=== PATIENT | male | born 1995 | race Caucasian/White ===

== ENCOUNTER 2017-10-03 11:36 | Inpatient (IN) | payer OTHER ==
[~2017-10-03] VITALS: Ht 180.3 cm; Wt 81.6 kg
[2017-10-03 12:23] LABS: ABSOLUTE BASOPHIL COUNT 0 /CUMM (0.0-0.2); ABSOLUTE EOSINOPHIL COUNT 0 /CUMM (0.0-0.7); ABSOLUTE GRANULOCYTE CT 8.7 /CUMM (1.4-6.5); ABSOLUTE LYMPH COUNT 1.4 /CUMM (1.2-3.4); ABSOLUTE MONOCYTE COUNT 0.6 /CUMM (0.10-0.60); BASOPHIL % 0.2 % (0.0-2.0); EOSINOPHIL % 0.1 % (0-5); GRANULOCYTE % 81.5 % (42.2-75.2); MEAN CORPUSCULAR HGB 28.9 PG (27.0-31.0); MEAN CORPUSCULAR HGB CONC 34.3 G/DL (33.0-37.0); MEAN CORPUSCULAR VOLUME 84.2 FL (80.0-94.0); MEAN PLATELET VOLUME 10.5 FL (7.4-10.4); PLATELET COUNT 150 /CUMM (130-400); RBC DISTRIBUTION WIDTH 13.6 % (11.5-14.5); RED BLOOD CELL CT 5.81 /CUMM (4.70-6.10); WHITE BLOOD CELL COUNT 10.7 /CUMM (4.8-10.8)
--- NOTE | 2017-10-03 14:07 | ED GENERAL ADULT ---
History of Present Illness General Chief Complaint: General Adult Stated Complaint: SENT BY [employer] FOR NUMBNESS ON RT SIDE Source: patient Exam Limitations: no limitations Vital Signs & Intake/Output Vital Signs & Intake/Output Vital Signs Date Time Temp Pulse Resp B/P B/P Pulse O2 O2 Flow FiO2 Mean Ox Delivery Rate 10/03 1412 98.7 86 18 133/60 100 10/03 1150 98.5 92 16 127/79 98 Room Air Allergies Coded Allergies: No Known Allergies (10/03/17) Reconcile Medications No Known Home Medications Triage Note: PT TO ED "I GUESS I OVERDOSED LAST NIGHT AT 1730 MY PARENTS FOUND ME, I THINK IT WAS HEROIN" PT DID NOT SEEK MEDICAL CARE LAST PM. ARRIVED TO [facility] THIS AM AND WAS INSTRUCTED TO COME TO ED TO HAVE R LEG MEDICALLY CLEARED AND R HAND MEDICALLY CLEARED. 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 PT EXPRESSING CONCERN ABOUT HOW HE WAS LAYING ON R LEG AND R HAND BEFORE BEING FOUND LAST PM "MAYBE IT CUT OFF MY BLOOD FLOW" Triage Nurses Notes Reviewed? yes Onset: Abrupt Duration: hour(s): (5) Timing: no prior history Injury Environment: home Severity: moderate Severity Numbers: 6 Modifying Factors: Worsens With: immobilization, movement. HPI: Patient is a 22-year-old male with history of IV drug abuse, specifically heroin presenting to the emergency department with chief complaint of right arm and right leg numbness and tingling with been going on since yesterday evening. Patient reports that he injected heroin Mustoe passed out because he woke up laying on his right side. He will go up to his family members trying to wake him up. Patient was responsive at that time so they did not seek medical attention. Patient reports that since then he said numbness and tingling to the right arm and leg. Symptoms were prominent in the right foot. he reports as if he cannot completely feel his right foot touching the ground. Has been using a cane that he has at home to walk. He does report that he hit his head and he only knows this because he is an abrasion on the face. Denies any current headaches. No visual changes. Denies using any other drugs besides heroin. No alcohol use recently. Denies any increased depression or anxiety. No history of similar symptoms in the past. Denies any urinary frequency or urgency or dysuria. Family does report that patient complained of darker urine this morning. Otherwise eating and drinking well. Past History Travel History Traveled to [place] past 21 day No Medical History Any Pertinent Medical History? see below for history Neurological: NONE EENT: NONE Cardiovascular: NONE Respiratory: NONE Gastrointestinal: NONE Hepatic: NONE Renal: NONE Musculoskeletal: NONE Psychiatric: depression, IV drug abuse, opioid dependence Endocrine: NONE Surgical History Surgical History: non-contributory Psychosocial History What is your primary language Latvian Tobacco Use: Current Daily Use Daily Tobacco Use Amount/Type: => 5 Cigarettes daily ETOH Use: occasional use Family History Hx Contributory? No Review of Systems Review of Systems Constitutional: Reports: no symptoms. Comments Review of systems: See HPI, All other systems negative. Constitutional, no chills fever or weight loss HEENT: No visual changes no sore throat no congestion Cardiovascular: No chest pain ,palpitation , orthopnea or ankle swelling Skin, no jaundice no rashes Respiratory: No dyspnea cough sputum or hemoptysis GI: No nausea no vomiting : No dysuria No hematuria Muscle skeletal: no back pain, no neck pain, Neurologic: no confusion Psych: History of depression, denies increased depression or increased anxiety Heme/endocrine: No bruising no bleeding no polyuria or polydipsia Immunology: No splenectomy or history of AIDS Physical Exam Physical Exam General Appearance: well developed/nourished, no apparent distress, alert, awake , comfortable Comments: Well-developed well-nourished person in no acute distress HEENT: extraocular motion intact, no nystagmus. Pupils equally round and reactive to light and accommodation. Nose is atraumatic. External auditory canal and Tympanic membranes clear. Pharynx normal. No swelling or edema. Nontender to palpation over entire scalp and facial bones. No hematomas noted over the scalp. Superficial abrasion noted to the right maxillary area, minimal tenderness over this area. NEck: Supple, no lymphadenopathy, normal range of motion without pain or tenderness, no C-spine tenderness. Back: Nontender, no CVA tenderness. Full range of motion Cardiovascular: Regular rate and rhythms no murmurs rubs or gallops, normal JVP Respiratory: Chest nontender. No respiratory distress.breath sounds clear to auscultation bilaterally Abdomen: Soft, nontender nondistended, no appreciable organomegaly. Normal bowel sounds. No ascites, NOT TENDER TO PALPATION. Extremity: No edema, no calf tenderness to palpation, normal and equal pulses. Muscular strength is 5 out of 5 in upper and lower extremities located on the stretcher. Business [employer] Specialist strength is equal and symmetric bilaterally. Neuro: Alert oriented x3, cranial nerves II through XII grossly intact. Dulled sensation noted over the dorsum of the right foot with sharp and dull sensation testing, but is not consistent with various. Patellar reflexes are intact, 2+ bilaterally. Babinski reflexes intact in lower extremities bilaterally. Radial reflexes are intact bilaterally. Skin: No appreciable rash on exposed skin, skin is warm and dry. Psych: Mood and affect is normal, memory and judgment is normal. Core Measures ACS in differential dx? No CVA/TIA Diagnosis: No Sepsis Present: No Sepsis Focused Exam Completed? No Progress Differential Diagnoses I considered the following diagnoses in my evaluation of the patient: Neuropraxia, spinal fracture, spinal abscess, rhabdomyolysis, dehydration, electrolyte abnormality, muscle strain, intracranial hemorrhage, overdose, polysubstance abuse Plan of Care: Orders Procedure Date/time Status Regular Diet 10/04 B Active Regular Diet 10/03 D Complete Patient Data 10/03 1630 Active Misc Message 10/03 1624 Active ED Holding Orders 10/03 1624 Active Admit to inpatient 10/03 1624 Active Vital Signs 10/03 1624 Active Code Status 10/03 1624 Active EKG 10/03 1546 Active MISTAKE 10/03 1413 Active Intake & Output 10/03 1339 Active Add-on Test (ER Only) 10/03 1325 Active CREATINE PHOSPHOKINASE 10/03 1210 Complete URINE DRUG SCREEN FOR ER ONLY 10/03 1150 Complete URINALYSIS 10/03 1150 Complete MAGNESIUM 10/03 1150 Complete ETHANOL 10/03 1150 Complete COMPREHENSIVE METABOLIC PANEL 10/03 1150 Complete CBC WITHOUT DIFFERENTIAL 10/03 1150 Complete Laboratory Tests 10/03/17 1217: Urine Opiates Screen 1668.00, Methadone Screen < 40, Barbiturate Screen < 60, Ur Phencyclidine Scrn < 6.00, Amphetamines Screen < 100, U Benzodiazepines Scrn < 85, Urine Cocaine Screen < 50, Urine Cannabis Screen 5.80, Urinalysis LIGHT H, Urine Color YEL, Urine Clarity HAZY H, Urine pH 6.0, Ur Specific [place] 1.020, Urine Protein NEG, Urine Ketones 40 H, Urine Nitrite NEG, Urine Bilirubin NEG, Urine Urobilinogen 0.2, Ur Leukocyte Esterase TRACE H, Ur Microscopic SEDIMENT EXAMINED, Urine RBC 1-3, Urine WBC 3-5 H, Ur Epithelial Cells MOD H, Urine Bacteria FEW H, Granular Casts RARE H, Urine Mucus MOD H, Urine Hemoglobin MOD H, Urine Glucose NEG 10/03/17 1210: Anion Gap 12, Estimated GFR > 60, BUN/Creatinine Ratio 21.4, Glucose 115 H, Calcium 9.4, Magnesium 2.1, Total Bilirubin 0.9, AST 1291 H, ALT 428 H, Alkaline Phosphatase 57, Creatine Kinase > 00613 H, Total Protein 7.3, Albumin 4.4, Globulin 2.9, Albumin/Globulin Ratio 1.5, CBC w Diff NO MAN DIFF REQ, RBC 5.81, MCV 84.2, MCH 28.9, MCHC 34.3, RDW 13.6, MPV 10.5 H, Gran % 81.5 H, Lymphocytes % 12.8 L, Monocytes % 5.4, Eosinophils % 0.1, Basophils % 0.2, Absolute Granulocytes 8.7 H, Absolute Lymphocytes 1.4, Absolute Monocytes 0.6, Absolute Eosinophils 0, Absolute Basophils 0, Serum Alcohol < 10.0 Diagnostic Imaging: Viewed by Me: CT Scan. Discussed w/RAD: CT Scan. Radiology Impression: PATIENT: THANH FERRARA PRESENT AGE: 22 PATIENT ACCOUNT NO: [id number] : 95 LOCATION: [facility] ORDERING PHYSICIAN: Alicia DAVIDSON SERVICE DATE: 10/03/17 EXAM TYPE: CAT - CT HEAD WO IV CONTRAST EXAMINATION: CT HEAD WITHOUT CONTRAST CLINICAL INFORMATION: Fall with head strike. Overdose. COMPARISON: None. TECHNIQUE: Contiguous axial imaging was performed from the skull base to vertex without intravenous contrast. DLP: 632 mGy-cm. FINDINGS: There is no evidence of acute intracranial hemorrhage or territorial infarction. No abnormal mass effect or midline shift is seen. Culver to white matter differentiation is well preserved. No extra-axial fluid collections are identified. No hydrocephalus. No significant volume loss. There is no abnormal attenuation within the brain parenchyma. The osseous structures and soft tissues are normal. The mastoid air cells and visualized portions of the paranasal sinuses are well aerated. IMPRESSION: No acute intracranial pathology. DICTATED BY: Ricky Pascual MD DATE/TIME DICTATED:10/03/171520 EDUCATION GENERAL MANAGER:RAKESH DATE/TIME TRANSCRIBED:10/03/171520 CONFIDENTIAL, DO NOT COPY WITHOUT APPROPRIATE AUTHORIZATION. <Electronically signed in Other Vendor System> SIGNED BY: Ricky Pascual MD 10/03/17 1527, PATIENT: THANH FERRARA PRESENT AGE: 22 PATIENT ACCOUNT NO: [id number] : 95 LOCATION: [facility] ORDERING PHYSICIAN: Alicia DAVIDSON SERVICE DATE: 10/03/17 EXAM TYPE: CAT - CT CERV SPINE W IV CONTRAST; CT LUMB SPINE W IV CONTRAST; CT THOR SPINE W IV CONTRAST EXAMINATION: CT CERVICAL SPINE WITH CONTRAST CT THORACIC SPINE WITH CONTRAST CT LUMBAR SPINE WITH CONTRAST CLINICAL INFORMATION: Fall, overdose. Drug user. Rule out fracture or abscess. COMPARISON: None TECHNIQUE: Multidetector volumetric imaging of the cervical, thoracic, and lumbar spine was performed after administration of 95 mL of Optiray 320 IV contrast. Coronal and sagittal reformatted images were obtained and reviewed. DLP: 1135 mGy-cm FINDINGS: There is no evidence of acute vertebral body fracture or malalignment. Vertebral body heights are maintained. Appearance of a limbus vertebrae at C5. Intervertebral disc spaces are maintained. The posterior elements are appropriately aligned. The sacroiliac joints are intact. The visualized ribs are intact. There is no abnormal enhancement within the spinal canal to suggest abscess formation. The paraspinal soft tissues are unremarkable. The visualized lungs are clear. Mild fullness of both renal collecting systems. No lymphadenopathy seen. IMPRESSION: 1. No acute fracture or malalignment of the spine. 2. No abnormal enhancement within the spinal canal or adjacent soft tissues to suggest abscess formation. DICTATED BY: Ricky Pascual MD DATE/ TIME DICTATED:10/03/171522 EDUCATION GENERAL MANAGER:RAKESH DATE/TIME TRANSCRIBED: 10/03/171522 CONFIDENTIAL, DO NOT COPY WITHOUT APPROPRIATE AUTHORIZATION. < Electronically signed in Other Vendor System> SIGNED BY: Ricky Pascual MD 10/03/17 1533 Initial ED EKG: NSR Departure Departure Time of Disposition: 1630 Disposition: STILL A PATIENT Condition: Stable Clinical Impression Primary Impression: Rhabdomyolysis Qualifiers: Rhabdomyolysis type: traumatic Encounter type: initial encounter Qualified Code: T79.6XXA - Traumatic ischemia of muscle, initial encounter Referrals: Patient Has No Primary Care Dr (PCP/Family) Departure Forms: Customer Survey General Discharge Information Prescriptions: Current Visit Scripts No Known Home Medications Admission Note Spoke With: Jose Corbin MD Documentation of Exam: Documentation of any treatments & extenuating circumstances including Concerns Regarding Discharge (functional status, medication knowledge or non-compliance, living conditions, etc.) that warrant an admission rather than observation: Patient requiring extensive IV hydration for rhabdomyolysis, repeat CK, repeat LFTs, may require neurological consultation secondary to numbness and tingling, may require anti-inflammatories or steroids for questionable neuropraxia. Discharge at this time is medically harmful. Patient may require physical therapy evaluation pending symptoms improvement with treatment. Critical Care Note Critical Care Note Critical Care Time: non-applicable
--- NOTE | 2017-10-03 15:27 | CT SCAN REPORT ---
EXAMINATION: CT HEAD WITHOUT CONTRAST CLINICAL INFORMATION: Fall with head strike. Overdose. COMPARISON: None. TECHNIQUE: Contiguous axial imaging was performed from the skull base to vertex without intravenous contrast. DLP: 632 mGy-cm. FINDINGS: There is no evidence of acute intracranial hemorrhage or territorial infarction. No abnormal mass effect or midline shift is seen. Culver to white matter differentiation is well preserved. No extra-axial fluid collections are identified. No hydrocephalus. No significant volume loss. There is no abnormal attenuation within the brain parenchyma. The osseous structures and soft tissues are normal. The mastoid air cells and visualized portions of the paranasal sinuses are well aerated. IMPRESSION: No acute intracranial pathology.
--- NOTE | 2017-10-03 15:33 | CT SCAN REPORT ---
EXAMINATION: CT CERVICAL SPINE WITH CONTRAST CT THORACIC SPINE WITH CONTRAST CT LUMBAR SPINE WITH CONTRAST CLINICAL INFORMATION: Fall, overdose. Drug user. Rule out fracture or abscess. COMPARISON: None TECHNIQUE: Multidetector volumetric imaging of the cervical, thoracic, and lumbar spine was performed after administration of 95 mL of Optiray 320 IV contrast. Coronal and sagittal reformatted images were obtained and reviewed. DLP: 1135 mGy-cm FINDINGS: There is no evidence of acute vertebral body fracture or malalignment. Vertebral body heights are maintained. Appearance of a limbus vertebrae at C5. Intervertebral disc spaces are maintained. The posterior elements are appropriately aligned. The sacroiliac joints are intact. The visualized ribs are intact. There is no abnormal enhancement within the spinal canal to suggest abscess formation. The paraspinal soft tissues are unremarkable. The visualized lungs are clear. Mild fullness of both renal collecting systems. No lymphadenopathy seen. IMPRESSION: 1. No acute fracture or malalignment of the spine. 2. No abnormal enhancement within the spinal canal or adjacent soft tissues to suggest abscess formation.
--- NOTE | 2017-10-03 17:09 | History & Physical ---
Izzy Bradshaw MDapna 10/03/17 8938: General Information and [facility] MD Statement: I have seen and personally examined THANH FERRARA and documented this H&P. The patient is a 22 year old M who presented with a patient stated chief complaint of [right hand and leg numbness and tingling sensation]. Source of Information: patient Exam Limitations: no limitations History of Present Illness: 22-year-old gentleman with no past medical history came to [facility] from [facility] complains of right hand and right leg numbness and tingling sensation since last night. Patient was in his usual state of health, patient was trying to inject IV heroine into his left arm and he suddenly collapsed. Patient was lying in the floor for 5-6 hours with face planted. Later this morning woke him up and he managed to walk to his bed and slept through the night. He woke up groggy and felt numbness and tingling sensation in his right hand and right leg. Patient went to [facility] for rehabilitation and they referred him here to [facility]. Patient managed to walk with a cane and limp on his right side. Patient denies incontinence of bowel and bladder, witnessed seizure, confused mentation, nausea, vomiting, abdominal pain, chest pain, palpitation, abdominal pain. Patient denies similar history in the past. Patient was admitted for depression and suicidal ideation many years ago Allergies/Medications Allergies: Coded Allergies: No Known Allergies (10/03/17) Home Med list No Known Home Medications Compliance With Home Meds: UNKNOWN Past History Travel History Traveled to [place] past 21 day No Medical History Neurological: NONE EENT: NONE Cardiovascular: NONE Respiratory: NONE Gastrointestinal: NONE Hepatic: NONE Renal: NONE Musculoskeletal: NONE Psychiatric: depression, IV drug abuse, opioid dependence Endocrine: NONE Surgical History Surgical History: non-contributory Past Family/Social History Family History Relations & Conditions if any Relation not specified for: *No pertinent family history Psychosocial History Where do you live? Home Who Do You Live With? parent Services at Home: None Primary Language: Sinhala ETOH Use: occasional use Review of Systems Review of Systems Constitutional: Reports: no symptoms. Cardiovascular: Reports: no symptoms. Respiratory: Reports: no symptoms. Genitourinary: Reports: no symptoms. Musculoskeletal: Reports: no symptoms. Exam & Diagnostic Data Last 24 Hrs of Vital Signs/I&O Vital Signs Date Time Temp Pulse Resp B/P B/P Pulse O2 O2 Flow FiO2 Mean Ox Delivery Rate 10/03 2201 98.4 68 20 128/60 98 Room Air 10/03 2019 69 110/74 10/03 2000 64 110/78 10/03 1842 98.7 69 18 118/72 10/03 1830 98.7 69 18 118/72 99 Room Air 10/03 1754 97.8 78 18 130/70 98 Room Air 10/03 1412 98.7 86 18 133/60 100 10/03 1150 98.5 92 16 127/79 98 Room Air Intake & Output 10/04 0800 10/04 0000 10/03 1600 Intake Total 2120 3720 1000 Output Total Balance 2120 3720 1000 Intake, IV 1400 3000 1000 Intake, Oral 720 720 Number 0 0 Bowel Movements Patient 180 lb 180 lb Weight Weight Reported by Patient Reported by Patient Measurement Method Physical Exam General Appearance Alert, Oriented X3, Cooperative, No Acute Distress, GAIT- LIMPIMG GAIT RT SIDE Cardiovascular Regular Rate, Normal S1, Normal S2, No Murmurs Lungs Clear to Auscultation Abdomen Soft, No Tenderness, No Hepatospenomegaly Neurological Normal Speech, Normal Tone, Cranial Nerves 3-12 NL, DECREASED SENSATION RIGHT HAND AND RIGHT LEG BELOW THE LEVEL OF KNEE. Extremities No Edema, Normal Pulses Last 24 Hrs of Labs/Roby: Laboratory Tests 10/03/17 1750: PT 12.8 H, INR 1.17 10/03/17 1217: Urine Opiates Screen 1668.00, Methadone Screen < 40, Barbiturate Screen < 60, Ur Phencyclidine Scrn < 6.00, Amphetamines Screen < 100, U Benzodiazepines Scrn < 85, Urine Cocaine Screen < 50, Urine Cannabis Screen 5.80, Urinalysis LIGHT H, Urine Color YEL, Urine Clarity HAZY H, Urine pH 6.0, Ur Specific [place] 1.020, Urine Protein NEG, Urine Ketones 40 H, Urine Nitrite NEG, Urine Bilirubin NEG, Urine Urobilinogen 0.2, Ur Leukocyte Esterase TRACE H, Ur Microscopic SEDIMENT EXAMINED, Urine RBC 1-3, Urine WBC 3-5 H, Ur Epithelial Cells MOD H, Urine Bacteria FEW H, Granular Casts RARE H, Urine Mucus MOD H, Urine Hemoglobin MOD H, Urine Glucose NEG 10/03/17 1210: Anion Gap 12, Estimated GFR > 60, BUN/Creatinine Ratio 21.4, Glucose 115 H, Calcium 9.4, Magnesium 2.1, Total Bilirubin 0.9, AST 1291 H, ALT 428 H, Alkaline Phosphatase 57, Creatine Kinase > 15267 H, Total Protein 7.3, Albumin 4.4, Globulin 2.9, Albumin/Globulin Ratio 1.5, CBC w Diff NO MAN DIFF REQ, RBC 5.81, MCV 84.2, MCH 28.9, MCHC 34.3, RDW 13.6, MPV 10.5 H, Gran % 81.5 H, Lymphocytes % 12.8 L, Monocytes % 5.4, Eosinophils % 0.1, Basophils % 0.2, Absolute Granulocytes 8.7 H, Absolute Lymphocytes 1.4, Absolute Monocytes 0.6, Absolute Eosinophils 0, Absolute Basophils 0, Hepatitis A IgM Ab Pending, Hep Bs Antigen Pending, Hep B Core IgM Ab Conf Pending, Hepatitis C Antibody Pending, Acetaminophen < 10.0 L, Serum Alcohol < 10.0 Diagnostic Data EKG Results EKG-sinus rhythm-heart rate 70 normal axes Other Results Lower extremity CAT scan There is fluid along the deep fascial planes adjacent to the right gluteus musculature and quadriceps musculature. This is nonspecific. Lack of IV contrast limits evaluation for a focal fluid collection, but no gross collection is seen. The fluid could be associated with hematoma, although the left hip is not included on the [id number] of this study and assessment for the symmetry of the musculature cannot be performed. Cervical spine CAT scan with IV contrast 1. No acute fracture or malalignment of the spine. 2. No abnormal enhancement within the spinal canal or adjacent soft tissues to suggest abscess formation. Assessment/Plan Assessment: 22-year-old gentleman with no past medical history came to [facility] [place] complains of right hand and right leg numbness and tingling sensation since last night. Admission vitals Temperature 98.5, pulse rate 92, respiratory rate 16, blood pressure 127/79, saturating 98 at room air Admission labs WBC 10.7, hemoglobin 16.8, platelets 150, sodium 136, potassium 3.8, BUNs 15, creatinine 0.7, glucose 115, calcium 9.4, medications 2.1, AST is 19, ALD 428, alkaline phosphatase 57, creatinine kinase 32,[address] cervical spine with IV contrast 1. No acute fracture or malalignment of the spine. 2. No abnormal enhancement within the spinal canal or adjacent soft tissues to suggest abscess formation. Head CT No acute intracranial pathology. Assessment and plan 1. Fall-rhabdomyolysis. 2. Numbness right arm and leg. 3. Opioid use disorder. * Fall-CAT scan negative for any intracranial bleed. Patient alert, oriented 3. MRI was not done. Rhabdomyolysis secondary due to prolonged immobilization. We will start him on IV fluids and repeat CK in the morning. Patient complains of right hip and right thigh tightness. We will take lower extremity CAT scan to rule out any hematoma. * Numbness right arm and leg-strength 5 x 5. Sensation decreased on the right hand and right leg. This patient's continues having numbness and tingling sensation we will involve neurology. * Opioid use disorder-patient is a chronic IV drug abuser and smokes pot, has insight of the problem. Watch for opiate withdrawal. Patient also uses alcohol on and off. Watch for any alcohol withdrawal. Code-full code Diet-regular diet As Ranked By This Provider Problem List: 1. Rhabdomyolysis Qualifiers Rhabdomyolysis type: traumatic Encounter type: initial encounter Qualified Code : T79.6XXA - Traumatic ischemia of muscle, initial encounter 2. Opioid use disorder, moderate, dependence 3. Fall Core Measures/Misc (03/16) Acute Coronary Syndrome ACS Diagnosis: No Congestive Heart Failure Congestive Heart Failure Diagnosis No Cerebrovascular Accident CVA/TIA Diagnosis: No VTE (View Protocol) VTE Risk Factors Age>40 No Mechanical VTE Prophylaxis d/t Other No VTE Pharm Prophylaxis d/t Other Sepsis (View protocol) Sepsis Present: No Bob,Digna 10/03/17 1714: Resident Review Statement Resident Statement: examined this patient, discussed with post graduate intern, agreed with post graduate intern, discussed with family, reviewed EMR data (avail), discussed with nursing , discussed with case mgmt, reviewed images, amended to note Other Findings: 22-year-old male with a past medical history IV drug use, likely heroin presented to the ED with complaints of right arm and right leg numbness and tingling which has been going on since yesterday evening. According to the patient he has been misusing heroin for about 4 years now. He states that yesterday afternoon he was injecting heroin into his left arm. Shortly afterwards he passed out. He states that he is not quite sure if he had any symptoms prior to passing out. He denies any chest pain, shortness of breath, palpitations. He does not remember hitting his face but states that he was sitting down while he was injecting the drug but his mom found him lying on the floor about 4-5 hours later. She helped him into bed, as patient had paresthesia and numbness in his R upper and lower extremity. Apparently there is no history of any seizures, no urinary incontinence, tongue bite. Patient does have a bruise under his right eye. He denies any dizziness, lightheadedness, blurry vision, bladder or bowel incontinence. He states that he injects 4- 6 bags of heroin on a daily basis. He has been doing that intermittently but for the past 3 days or so has been doing that on a continuous basis. He denies using any other drugs, however, does admit to smoking weed and drinking about 4- 5 beers over a span of 1 week. His last drink was about 2 days ago where he had a beer. He endorses numbness in his R leg more so in the L3-L4, with pain in the R buttock area. Denies HI/SI. Of note patient lives in [facility] and is [place] because [place] went [place] [facility] and was advised to come to the ER since he was complaining of paresthesia and numbness in his RLE and R arm - mccrary surface. Vitals at the time of admission blood pressure 133/60, respiratory rate of 18, pulse 86, afebrile saturating 98% on room air. On physical exam he is alert, oriented x3 and in NAD. HEENT revealed PERRLA, CNII-XII grossly intact. Cardiovascular exam pertinent for normal S1, S2, no murmurs, rubs, gallops appreciated. Respiratory exam pertinent for CTAB, abdominal exam benign with abdomen soft, nontender, non-distended with normal BS in all 4 quadrants. Examination of LEs did not reveaL any bruises or edema. Examination of the LUE revealed a 3cm x2cm bruise on left forearm. Neuro exam pertinent for strength taht was 5/5 in all 4 extermities, altered sensation in the mccrary surface of R hand andL4/L5 distribution of RLE. He was also limping while walking on his RLE. Labs pertinent for normal white blood cell count of 10,700, H&H of 16.8/29.0, white blood cell count of 10,700, platelet count of 1 50,000. Serum chemistries pertinent for sodium of 136, potassium of 3.8, bicarb of 28, BUN 15 creatinine 0.7 and serum glucose of 115. LFTs elevated with AST/ALT of 129 1/4 2 8 with alk phos of 57, and creatinine kinase of more than 32,000. U tox positive for opiates, serum alcohol less than 10. UA was light, he received with ketones, negative for nitrite, trace amount of leukocyte esterase with 3-[address] cervical thoracic lumbar spine with contrast showed no acute fracture or malalignment of the spine, no abnormal enhancement within the spinal canal or adjacent soft tissue to suggest abscess formation. Head CT without IV contrast showed no acute intracranial pathology. In the ER he received 2000 mL's of normal saline and was started on the third liter. Assessment and plan Admit patient to general medicine. # Opioid overuse disorder - Currently not withdrawing - Consider starting Suboxone if he starts to actively withdraw. - Social work and Psychiatry consult. -CIWA for any alcohol withdrawl #Transaminitis - Obtain hepatitis panel, HIV, tyelnol level. #Rhabdomyolysis Hydrate with IVF @ 200mls/hr F/U CK in AM F/U BEP in AM # R buttock pain with paresthesia in RLE - Obtain a CT of LE to r/o nay hematoma taht may be impinging on his nerve supply. - DVT Prophylaxis - Heparin 5000IU TID SC - Diet - Regular - Code Status - Full Code Jose Corbin 10/03/17 1715: Attending MD Review Statement Attending Statement Attending MD Statement: examined this patient, discuss w/resident/PA/ART OBJECTS SALESPERSON, agreed w/resident/PA/ART OBJECTS SALESPERSON, discussed with family, reviewed EMR data (avail), discussed with nursing, discussed with case mgmt, reviewed images, amended to note Attending Assessment/Plan: 22 o/m with no significant pmh except occasional drug use comes with period of drowsiness and fall on floor. No urinary/bowel incontinence, fever, chills. Patient did consume alcohol few days ago. Labs with urine drug screen positive for opiods. CT head/spine with contrast with no pathology. Patient with elevated CPK >84782 and elevated liver enzymes. Normal creatinine. Patient is being admitted to inpatient medical services for acute elevation of liver enzymes likely alcoholic pattern possible viral component, rhabdomyolysis with dark urine/myoglobinuria requiring aggressive hydration. IVF @200 ml/hr, Repeat cpk in am. Monitor creatinine and LFTs. Obtain hepatiis panel (risk behaviour). gi/dvt prophyalxis full code, plan of care d.wed patient bedside. Agress to management.
[2017-10-03 18:30] VITALS: BP 118/72
[2017-10-03 18:42] VITALS: BP 118/72
[2017-10-03 18:48] LABS: PT 12.8 SEC (9.4-12.5)
[2017-10-03 20:00] VITALS: BP 110/78
[2017-10-03 20:19] VITALS: BP 110/74
--- NOTE | 2017-10-03 21:34 | CT SCAN REPORT ---
EXAMINATION: CT LOWER EXTREMITY WITHOUT CONTRAST, RIGHT CLINICAL INFORMATION: Neuropathy and right lower extremity. Right hip pain. COMPARISON: None TECHNIQUE: Multidetector volumetric imaging of the right hip was performed without IV contrast. Coronal and sagittal reformatted images were obtained and reviewed. DLP: 555 mGy-cm FINDINGS: There is no fracture or dislocation. The femoral head articulates appropriately with the acetabulum. The joint space is maintained. The visualized right hemipelvis is intact. There is no right hip joint effusion. There is fluid seen along the right gluteus medius and minimus muscles as well as extending distally deep to the gluteus bull. Small amount of fluid also seen interdigitating with the right quadricep musculature. Lack of IV contrast limits evaluation for fluid collection. The visualized intrapelvic structures appear unremarkable. IMPRESSION: No acute osseous abnormality. Normal alignment at the right hip. There is fluid along the deep fascial planes adjacent to the right gluteus musculature and quadriceps musculature. This is nonspecific. Lack of IV contrast limits evaluation for a focal fluid collection, but no gross collection is seen. The fluid could be associated with hematoma, although the left hip is not included on the [id number] of this study and assessment for the symmetry of the musculature cannot be performed..
[2017-10-03 22:01] VITALS: BP 128/60
--- NOTE | 2017-10-04 04:07 | PN- Housestaff ---
Ness Bradshaw MD 10/04/17 0407: Subjective Follow-up For: Polysubstance abuse Fall Subjective: Patient seen and examined at bedside no overnight events he slept well overnight. He denies nausea, vomiting, diarrhea, chest pain. He says his right hand and right leg numbness has improved. Review of Systems Constitutional: Reports: see HPI. Objective Last 24 Hrs of Vital Signs/I&O Vital Signs Date Time Temp Pulse Resp B/P B/P Pulse O2 O2 Flow FiO2 Mean Ox Delivery Rate 10/03 2201 98.4 68 20 128/60 98 Room Air 10/03 2019 69 110/74 10/03 2000 64 110/78 10/03 1842 98.7 69 18 118/72 10/03 1830 98.7 69 18 118/72 99 Room Air 10/03 1754 97.8 78 18 130/70 98 Room Air 10/03 1412 98.7 86 18 133/60 100 / 1150 98.5 92 16 127/79 98 Room Air Intake & Output 10/04 0800 10/04 0000 10/03 1600 Intake Total 3720 1000 Output Total Balance 3720 1000 Intake, IV 3000 1000 Intake, Oral 720 Number 0 Bowel Movements Patient 180 lb 180 lb Weight Weight Reported by Patient Reported by Patient Measurement Method Physical Exam General Appearance: Alert, Oriented X3, Cooperative, No Acute Distress Cardiovascular: Regular Rate, Normal S1, Normal S2, No Murmurs Lungs: Clear to Auscultation, Normal Air Movement Abdomen: Soft, No Tenderness, No Hepatospenomegaly Neurological: Normal Speech, Strength at 5/5 X4 Ext, Normal Tone, Sensation Intact, Cranial Nerves 3-12 NL Extremities: No Cyanosis, No Edema, Normal Pulses Current Medications: Current Medications Sig/Vini Start time Last Medication Dose Route Stop Time Status Admin Heparin Sodium 5,000 UNIT Q8 10/03 2200 AC (Porcine) SC Sodium Chloride 1,000 ML ONCE ONE 10/03 1815 DC IV 10/04 0054 Sodium Chloride 1,000 ML Q6H 10/03 1800 AC 10/04 IV 0345 Sodium Chloride 1,000 ML BOLUS ONE 10/03 1615 DC / IV 10/03 1714 1642 Sodium Chloride 1,000 ML BOLUS ONE 10/03 1530 DC / IV 10/03 1629 1523 Sodium Chloride 1,000 ML BOLUS ONE 10/03 1530 DC 10/03 IV 10/03 1620 1602 Last 24 Hrs of Lab/Roby Results Last 24 Hrs of Labs/Mics: Laboratory Tests 10/03/17 1750: PT 12.8 H, INR 1.17 10/03/17 1217: Urine Opiates Screen 1668.00, Methadone Screen < 40, Barbiturate Screen < 60, Ur Phencyclidine Scrn < 6.00, Amphetamines Screen < 100, U Benzodiazepines Scrn < 85, Urine Cocaine Screen < 50, Urine Cannabis Screen 5.80, Urinalysis LIGHT H, Urine Color YEL, Urine Clarity HAZY H, Urine pH 6.0, Ur Specific [place] 1.020, Urine Protein NEG, Urine Ketones 40 H, Urine Nitrite NEG, Urine Bilirubin NEG, Urine Urobilinogen 0.2, Ur Leukocyte Esterase TRACE H, Ur Microscopic SEDIMENT EXAMINED, Urine RBC 1-3, Urine WBC 3-5 H, Ur Epithelial Cells MOD H, Urine Bacteria FEW H, Granular Casts RARE H, Urine Mucus MOD H, Urine Hemoglobin MOD H, Urine Glucose NEG 10/03/17 1210: Anion Gap 12, Estimated GFR > 60, BUN/Creatinine Ratio 21.4, Glucose 115 H, Calcium 9.4, Magnesium 2.1, Total Bilirubin 0.9, AST 1291 H, ALT 428 H, Alkaline Phosphatase 57, Creatine Kinase > 17223 H, Total Protein 7.3, Albumin 4.4, Globulin 2.9, Albumin/Globulin Ratio 1.5, CBC w Diff NO MAN DIFF REQ, RBC 5.81, MCV 84.2, MCH 28.9, MCHC 34.3, RDW 13.6, MPV 10.5 H, Gran % 81.5 H, Lymphocytes % 12.8 L, Monocytes % 5.4, Eosinophils % 0.1, Basophils % 0.2, Absolute Granulocytes 8.7 H, Absolute Lymphocytes 1.4, Absolute Monocytes 0.6, Absolute Eosinophils 0, Absolute Basophils 0, Hepatitis A IgM Ab Pending, Hep Bs Antigen Pending, Hep B Core IgM Ab Conf Pending, Hepatitis C Antibody Pending, Acetaminophen < 10.0 L, Serum Alcohol < 10.0 Assessment/Plan Assessment: 22-year-old gentleman with past medical history of polysubstance abuse came [facility] complains of fall followed by right hand and right leg numbness and tingling sensation since last night. Assessment and plan 1. Fall-rhabdomyolysis. 2. Numbness right arm and leg. 3. Opioid use disorder. * Fall-CAT scan head negative for any intracranial bleed. Patient alert, oriented 3. MRI was not done. Rhabdomyolysis secondary due to prolonged immobilization. Continue IV fluids and follow up with CK in the morning . Patient complains of right hip and right thigh tightness. Lower extremity scan shows fluid collection in the deep fascial planes which can be nonspecific/ hematoma. * Numbness right arm and leg-strength 5 x 5. Sensation decreased on the right hand and right leg. This patient's continues having numbness and tingling sensation we will involve neurology. * Polysubstance use disorder-patient is a chronic IV drug abuser and smokes pot, has insight of the problem. Watch for opiate withdrawal. Patient also uses alcohol on and off. Watch for any alcohol withdrawal. Code-full code Diet-regular diet Problem List: 1. Fall 2. Opioid use disorder, moderate, dependence 3. Rhabdomyolysis Pain Ratin Pain Location: Right hip and thigh Pain Goal: Remain pain free Pain Plan: Tylenol Tomorrow's Labs & Rationales: arturo Jose Corbin 10/04/17 1116: Attending MD Review Statement Attending Statement Attending MD Statement: examined this patient, discuss w/resident/PA/RADIOTELEPHONE OPERATOR, agreed w/resident/PA/RADIOTELEPHONE OPERATOR, discussed with family, reviewed EMR data (avail), discussed with nursing, discussed with case mgmt, reviewed images, amended to note Attending Assessment/Plan: 22 o/m with no significant pmh except occasional drug use comes with period of drowsiness and fall on floor. No urinary/bowel incontinence, fever, chills. Patient did consume alcohol few days ago. Labs with urine drug screen positive for opiods. CT head/spine/lower extremity with contrast with no pathology. Patient with elevated CPK >94229 and elevated liver enzymes. Normal creatinine. Patient is being admitted to inpatient medical services for acute elevation of liver enzymes likely alcoholic pattern, rhabdomyolysis with dark urine/ myoglobinuria improving with aggressive hydration. Repeat CPK trending down. Hepatitis panel negative. Patient is clinicallly improving with better sternght in his lower extremities. He can be discharged soon to [facility] for drug rehab program.
[2017-10-04 06:58] VITALS: BP 111/68
[2017-10-04 09:01] LABS: ABSOLUTE BASOPHIL COUNT 0 /CUMM (0.0-0.2); ABSOLUTE EOSINOPHIL COUNT 0 /CUMM (0.0-0.7); ABSOLUTE GRANULOCYTE CT 4.1 /CUMM (1.4-6.5); ABSOLUTE LYMPH COUNT 1.7 /CUMM (1.2-3.4); ABSOLUTE MONOCYTE COUNT 0.7 /CUMM (0.10-0.60); BASOPHIL % 0.3 % (0.0-2.0); EOSINOPHIL % 0.5 % (0-5); GRANULOCYTE % 62.8 % (42.2-75.2); MEAN CORPUSCULAR HGB 29.1 PG (27.0-31.0); MEAN CORPUSCULAR HGB CONC 34.4 G/DL (33.0-37.0); MEAN CORPUSCULAR VOLUME 84.4 FL (80.0-94.0); MEAN PLATELET VOLUME 11.1 FL (7.4-10.4); PLATELET COUNT 114 /CUMM (130-400); RBC DISTRIBUTION WIDTH 13.5 % (11.5-14.5); RED BLOOD CELL CT 4.81 /CUMM (4.70-6.10); WHITE BLOOD CELL COUNT 6.5 /CUMM (4.8-10.8)
[2017-10-04 12:39] LABS: HEMATOCRIT 40.6 % (42-52)
[2017-10-04 14:36] VITALS: BP 138/78
[2017-10-04 23:12] VITALS: BP 126/71
[2017-10-05 06:32] VITALS: BP 117/66
--- NOTE | 2017-10-05 09:21 | PN- Housestaff ---
See Addendum Subjective Follow-up For: Rhabdo, polysubstance abuse Subjective: No overnight events. This morning, the patient was wondering about his blood work otherwise feels good area he has some mild pain in his right thigh. He denies any chest pain, shortness of breath, bowel pain, nausea, vomiting, or diarrhea. He is very motivated to go to [facility] and participate in rehabilitation. Review of Systems Constitutional: Reports: no symptoms. EENTM: Reports: no symptoms. Cardiovascular: Reports: no symptoms. Respiratory: Reports: no symptoms. Gastrointestinal: Reports: no symptoms. Genitourinary: Reports: no symptoms. Musculoskeletal: Reports: see HPI. Skin: Reports: no symptoms. Neurological/Psychological: Reports: see HPI. Hematologic/Endocrine: Reports: no symptoms. Immunologic/Allergic: Reports: no symptoms. Objective Last 24 Hrs of Vital Signs/I&O Vital Signs Date Time Temp Pulse Resp B/P B/P Pulse O2 O2 Flow FiO2 Mean Ox Delivery Rate 10/05 0632 98.1 66 18 117/66 100 Room Air 10/04 2312 98.1 69 18 126/71 98 Room Air 10/04 1436 98.2 74 20 138/78 97 Room Air Intake & Output 10/05 1600 10/05 0800 10/05 0000 Intake Total 2080 840 Output Total Balance 2080 840 Intake, IV 1600 600 Intake, Oral 480 240 Number 0 0 Bowel Movements Physical Exam General Appearance: Alert, Oriented X3, Cooperative, No Acute Distress Cardiovascular: Regular Rate, Normal S1, Normal S2 Lungs: Clear to Auscultation Abdomen: Normal Bowel Sounds, Soft, No Tenderness Extremities: No Edema, Normal Pulses, No Tenderness/Swelling Current Medications: Current Medications Sig/Vini Start time Last Medication Dose Route Stop Time Status Admin Heparin Sodium 5,000 UNIT Q8 10/03 2200 AC (Porcine) SC Nicotine 14 MG DAILY 10/04 1000 AC 10/05 TOP 0837 Sodium Chloride 1,000 ML Q6H 10/03 1800 AC 10/05 IV 0516 Last 24 Hrs of Lab/Roby Results Last 24 Hrs of Labs/Mics: Laboratory Tests 10/05/17 0744: Anion Gap 9, Estimated GFR > 60, BUN/Creatinine Ratio 12.0 Assessment/Plan Assessment: 22-year-old gentleman with past medical history of polysubstance abuse came [facility] complains of fall. Assessment and plan 1. Fall-rhabdomyolysis. 2. Numbness right arm and leg. 3. Opioid use disorder. * Fall-CAT scan head negative for any intracranial bleed. Patient alert, oriented 3. MRI was not done. Rhabdomyolysis secondary due to prolonged immobilization. Continue IV fluids and follow up with [facility] in the morning . Patient complains of right hip and right thigh tightness. Lower extremity scan shows fluid collection in the deep fascial planes which can be nonspecific/ hematoma. * Numbness right arm and leg-strength 5 x 5. Sensation decreased on the right hand and right leg. This has improved. * Polysubstance use disorder-patient is a chronic IV drug abuser and smokes pot, has insight of the problem. Watch for opiate withdrawal. Patient also uses alcohol on and off. Watch for any alcohol withdrawal. He is potentially going to [facility] today. Code-full code Diet-regular diet Problem List: 1. Opioid use disorder, moderate, dependence Pain Ratin Pain Location: thigh Pain Goal: Remain pain free Pain Plan: see a/p Tomorrow's Labs & Rationales: no
--- NOTE | 2017-10-05 10:55 | Patient Discharge Instructions ---
Discharge Instructions General Discharge Information You were seen/treated for: Rhabdomyolysis, heroin abuse Watch for these problems: Fever, chest pain, shortness of breath Special Instructions: Please take all medications as directed. Please follow-up with [facility]. Please abstain from all alcohol, smoking, and recreational drug use. Please drink enough fluids. Diet Continue normal diet: Yes Activity Full Activity/No Limits: Yes Acute Coronary Syndrome Inclusion Criteria At DC or during hospital stay patient has or had the following: ACS DIAGNOSIS No Discharge Core Measures Meds if any: Prescribed or Continued at Discharge Meds if any: NOT Prescribed or Continued at Discharge Congestive Heart Failure Inclusion Criteria At DC or during hospital stay patient has or had the following: CHF DIAGNOSIS No Discharge Core Measures Meds if any: Prescribed or Continued at Discharge Meds if any: NOT Prescribed or Continued at Discharge Cerebrovascular accident Inclusion Criteria At DC or during hospital stay patient has or had the following: CVA/TIA Diagnosis No Discharge Core Measures Meds if any: Prescribed or Continued at Discharge Meds if any: NOT Prescribed or Continued at Discharge Venous thromboembolism Inclusion Criteria VTE Diagnosis No VTE Type NONE VTE Confirmed by (Test) NONE Discharge Core Measures - Per Current guidelines, there needs to be overlap - treatment for the first 5 days of Warfarin therapy. - If discharged on Warfarin prior to 5 days of - overlap therapy, the patient will need to be - assessed for post discharge needs including - *Post discharge parental anticoagulation - *Warfarin and/or parental anticoagulation education - *Follow up date to check INR post discharge At least 5 days overlap therapy as Inpatient No Meds if any: Prescribed or Continued at Discharge Note: Overlap Therapy is Warfarin and Anticoagulant Meds if any: NOT Prescribed or Continued at Discharge
--- NOTE | 2017-10-07 08:20 | PN- Student ---
Subjective Subjective: Be Fisher is a 22 year old male with a past medical history of polysubstance abuse, depression and suicidal ideation. He came to the hospital complaining about numbness and tingling sensation (pins & needles) on his right arm and right leg. The day before he was injecting himself with heroin (left arm ) and fell to the floor. He can't remember the events that happened in the meantime. His mother found him 5 hours later and woke him up. Since then he has been feeling the abnormal sensations in his right arm and leg. He went to sleep right away and this morning, when he went to [facility], they send him here to be seen by the physicians. The patient started his addiction about 4 years ago and that's when he was in a 60 day in-patient rehab. Since then he has been on and off with his addiction. The patient denies any headaches, confusion, changes in his vision, pain or altered mental status. He denies any changes in his bowel movements, or suicidal thoughts. Allergies: None Home Medications: None Surgical history: None Past hospitalizations: 5 yrs ago because of depression and suicidal thoughts. Was on wellbutrin, stopped a yr ago. Family history: None Social history: Patient lives in [place] with his parents. He is a straight male who is not currently sexually active. He is an ocassional drinker and smoker ( marijuana- last time: 6-7 days ago) and has had an on and off heroin addiction. The past three days he has been using it once daily (4-6 bags). Objective Objective: Vital Signs Date Time Temp Pulse Resp B/P B/P Pulse O2 O2 Flow FiO2 Mean Ox Delivery Rate 10/05 0532 98.1 66 18 117/66 100 Room Air 10/04 2312 98.1 69 18 126/71 98 Room Air 10/04 1436 98.2 74 20 138/78 97 Room Air 10/04 0658 98.3 56 18 111/68 98 Room Air 10/03 2201 98.4 68 20 128/60 98 Room Air 10/03 2019 69 110/74 04/06 2000 64 110/78 04/ 1842 98.7 69 18 118/72 04/ 1830 98.7 69 18 118/72 99 Room Air 10/03 1754 97.8 78 18 130/70 98 Room Air 10/03 1412 98.7 86 18 133/60 100 10/03 1150 98.5 92 16 127/79 98 Room Air Physical Exam: General appaerance: Patient seems alert, cooperative, in no distress and oriented x3. Skin: Superficial abrasion on the right side of his face. Hematoma on left arm. HEENT: Normal Cardiovascular: Regular rate, normal S1 & S2, no additional heart sounds Lungs: Normal breath sounds Abdomen: No tenderness or masses Neurological: CN III-XII normal, normal babinski sign, normal cerebellar function, decreased sensation in right hand and leg below the level of the knee Extremities: Patient is unable to flex right leg. No edema or erythema, normal pedal pulses. Results Results: Laboratory Tests 10/03/17 1750: PT 12.8 H, INR 1.17 10/03/17 1217: Urine Opiates Screen 1668.00, Methadone Screen < 40, Barbiturate Screen < 60, Ur Phencyclidine Scrn < 6.00, Amphetamines Screen < 100, U Benzodiazepines Scrn < 85, Urine Cocaine Screen < 50, Urine Cannabis Screen 5.80, Urinalysis LIGHT H, Urine Color YEL, Urine Clarity HAZY H, Urine pH 6.0, Ur Specific [place] 1.020, Urine Protein NEG, Urine Ketones 40 H, Urine Nitrite NEG, Urine Bilirubin NEG, Urine Urobilinogen 0.2, Ur Leukocyte Esterase TRACE H, Ur Microscopic SEDIMENT EXAMINED, Urine RBC 1-3, Urine WBC 3-5 H, Ur Epithelial Cells MOD H, Urine Bacteria FEW H, Granular Casts RARE H, Urine Mucus MOD H, Urine Hemoglobin MOD H, Urine Glucose NEG 10/03/17 1210: Anion Gap 12, Estimated GFR > 60, BUN/Creatinine Ratio 21.4, Glucose 115 H, Calcium 9.4, Magnesium 2.1, Total Bilirubin 0.9, AST 1291 H, ALT 428 H, Alkaline Phosphatase 57, Creatine Kinase > 86573 H, Total Protein 7.3, Albumin 4.4, Globulin 2.9, Albumin/Globulin Ratio 1.5, CBC w Diff NO MAN DIFF REQ, RBC 5.81, MCV 84.2, MCH 28.9, MCHC 34.3, RDW 13.6, MPV 10.5 H, Gran % 81.5 H, Lymphocytes % 12.8 L, Monocytes % 5.4, Eosinophils % 0.1, Basophils % 0.2, Absolute Granulocytes 8.7 H, Absolute Lymphocytes 1.4, Absolute Monocytes 0.6, Absolute Eosinophils 0, Absolute Basophils 0, Hepatitis A IgM Ab Pending, Hep Bs Antigen Pending, Hep B Core IgM Ab Conf Pending, Hepatitis C Antibody Pending, Acetaminophen < 10.0 L, Serum Alcohol < 10.0 Assessment/Plan Assessment: Be Fisher is a 22 year old male with a past medical history of polysubstance abuse, depression and suicidal ideation. He came to the hospital complaining about numbness and tingling sensation (pins & needles) on his right arm and right leg. The day before he was injecting himself with heroin (left arm ) and fell to the floor. He can't remember the events that happened in the meantime. His mother found him 5 hours later and woke him up. Since then he has been feeling the abnormal sensations in his right arm and leg. Problem list: 1. Rhabdomyolysis 2. Numbness in his right arm and leg 3. Opioid dependence Plan: 1. Administer IV fluids to prevent kidney injury. Keep the patient hydrated. 2. Assess the patient to see if any improvement is seen. Possible neurological consult. 3. Assess opioid dependence. Explain to the patient the potential risks and encourage him to go to rehab.
== END 2017-10-05 11:24 | DRG 566 ==
LOC: ERH 11:36 → ERHI 16:24 → ENRESERV 17:26 → ENTRNSPT 17:57 → EDTRNSPTSTS 18:10 → EDTRNSPT 18:10 → 2NB 18:14 → CMPTRNSPT 18:35 → ENPENDDIS 10-05 11:11 → 2NB 10-05 11:24
PROVIDERS: Internal Medicine Infectious Disease; Physician Assistant
DX: T79.6XXA Traumatic ischemia of muscle, initial encounter (principal); F19.10 Other psychoactive substance abuse, uncomplicated; F32.9 Major depressive disorder, single episode, unspecified; W18.30XA Fall on same level, unspecified, initial encounter; Y92.009 Unspecified place in unspecified non-institutional (private) residence as the place of occurrence of the external cause
CPT/HCPCS: 2NBSP; 36415; 36592; 80307; 81001; 82436; 87389; 93005; 93010; G0480; J1644